=== PATIENT | female | born 1975 | race Hispanic/Latino ===

== ENCOUNTER → 2018-04-23 | Day surgery (SDC) | payer BC ==
[2018-04-19 15:52] LABS: BASOPHILS % 0.4 % (0.0-1.0); EOSINOPHILS # (AUTO) 0.2 (0.0-0.4); HEMATOCRIT 36.8 % (34.2-44.1); HEMOGLOBIN 12.5 g/dL (12.0-16.0); LYMPHOCYTES # (AUTO) 2.3 (1.0-3.2); LYMPHOCYTES % 28.1 % (18.0-39.1); MEAN CORPUSCULAR HEMOGLOBIN 30.1 pg (28-32); MEAN CORPUSCULAR VOLUME 88.7 fL (81-99); MONOCYTES # (AUTO) 0.7 (0.2-0.8); NEUTROPHILS # (AUTO) 5.1 (2.1-6.9); NEUTROPHILS % 61.3 % (38.7-80.0); PLATELET COUNT 252 x10e3/uL (140-360); RED BLOOD COUNT 4.15 x10e6/uL (3.6-5.1); RED CELL DISTRIBUTION WIDTH 12.9 % (11.7-14.4)
--- NOTE | 2018-04-19 16:15 | Diagnostic Imaging Report ---
PROCEDURE: Frontal and lateral views of the chest. COMPARISON: Patients [facility], , CHEST 2 VIEWS, 10/23/2015, 16:25. INDICATIONS: PRE-OPERATIVE CHEST X-RAY FOR SURGERY FINDINGS: Lines/tubes: None. Lungs: The lungs are well inflated and clear. There is no evidence of pneumonia or pulmonary edema. Pleura: There is no pleural effusion or pneumothorax. Heart and mediastinum: The heart and the mediastinum are normal. Bones: No acute bony abnormality. IMPRESSION: 1. No acute cardiopulmonary abnormality. Chris Vasquez M.D. Dictated by: Chris Vasquez M.D. on 04/19/2018 at 16:17 Electronically approved by: Chris Vasquez M.D. on 04/19/2018 at 16:17
[~2018-04-23] MED LIST: AMLODIPINE BESY10 MG PO; ASPIR 8181 MG PO; BUPIVACAINE HCL 0.5% 10ML MPF VIAL INJ ONE; BYSTOLIC10 MG PO; CEFAZOLIN SOD 1 GM VIAL ONE; DEXAMETHASONE SOD PHOS INJ 4 MG/ML VIAL ONE; FENTANYL CITRATE/PF 100MCG/2 ML INJ ONE; IBUPROFEN400 MG PO; KETOROLAC TROMETHAMINE 30 MG/ML VIAL ONE; LIDOCAINE HCL 2% LOCAL INJ 5 ML SDV VIAL INJ ONE; LISINOPRIL-HCT1 EAC1 PO; LOSARTAN POTAS100 MG PO; METOPROLOL SUCC50 MG PO; MIDAZOLAM HCL 2 MG/2 ML VIAL ONE; ONDANSETRON HCL INJ 2 MG/ML VIAL ONE; PROPOFOL IV EMULSION 10 MG/ML 20 ML VIAL ONE; SEVOFLURANE INHAL SOLN 250 ML PEN BTL ONE
--- OUTSIDE RECORDS SUMMARY | 2018-04-23 06:26 | XMS REPORT ---
Author [facility] Address Unknown Phone Unavailable Care Team Providers Care Manager Air Name Role Phone ANJU NAIR Unavailable Unavailable Problems This patient has no known problems. Allergies, Adverse Reactions, Alerts This patient has no known allergies or adverse reactions. Medications This patient has no known medications. Results Test Description Test Time Test Comments Text Results Atomic Results Result Comments CHEST 2 VIEWS 2018-04-19 16:17:00 [place] [address] Patient Name: SUZY CONTRERAS MR #: [id number] : 1975 Age/Sex: 42/F Req #: [id number] Adm Physician: Ordered by: ANJU NAIR DPM Report #: [id number] Location: OR Room/Bed: Procedure: [id number] DX/CHEST 2 VIEWS Exam Date: 04/19/18 Exam Time: 1555 REPORT STATUS: Signed PROCEDURE: Frontal and lateral views of the chest. COMPARISON: [facility], , CHEST 2 VIEWS, 10/23/2015, 16:25. INDICATIONS: PRE- OPERATIVE CHEST X-RAY FOR SURGERY FINDINGS: Lines/tubes: None. Lungs: The lungs are well inflated and clear. There is no evidence of pneumonia or pulmonary edema. Pleura: There is no pleural effusion or pneumothorax. Heart and mediastinum: The heart and the mediastinum are normal. Bones: No acute bony abnormality. IMPRESSION: 1. No acute cardiopulmonary abnormality. Mitch Thorpe M.D. Dictated by: Mitch Thorpe M.D. on 04/19/2018 at 16:17 Electronically approved by: Mitch Thorpe M.D. on 04/19/2018 at 16:17 Dictated By: MITCH THORPE MD [id number] Transcribed By: SANJIV on 04/19/18 1617 COPY TO: ANJU NAIR DPM
--- NOTE | 2018-04-23 09:42 | Operative Report ---
DATE OF PROCEDURE: April 23, 2018 PREOPERATIVE DIAGNOSES: 1. Right heel spur. 2. Right plantar fasciitis. POSTOPERATIVE DIAGNOSES: 1. Right heel spur. 2. Right plantar fasciitis. PLANNED PROCEDURE: Right plantar fasciotomy with excision of heel spur. ANESTHESIA: General with a postoperative block consisting of 10 mL of 0.5% Marcaine plain. HEMOSTASIS: Pneumatic ankle tourniquet set at 250 mmHg for a total time of approximately 15 minutes. MATERIALS: One TLS drain, 3-0 Vicryl, 4-0 Prolene. ESTIMATED BLOOD LOSS: Less than 10 mL. PATHOLOGY: None. PROCEDURE NOTE: The patient was seen in the preoperative waiting room where the correct procedure and site were identified. The patient was brought to the operating room and placed on the operating table in the supine position. General anesthesia was initiated at this time. A well-padded pneumatic tourniquet was placed about the patient's right ankle. The right foot, ankle, and leg were then scrubbed, prepped and draped in the usual aseptic manner. The right foot, ankle, and leg were then exsanguinated with an Esmarch bandage, and the pneumatic ankle tourniquet was inflated to 250 mmHg for a total time of approximately 20 minutes. Attention was directed to the medial aspect of the patient's right heel where a 4-cm linear incision was made on the medial and plantar aspect of the patient's right heel. The incision was carried through the subcutaneous tissues, them from deeper underlying structures. All vital neurovascular structures were identified, retracted dorsally and plantarly, and all bleeders were cauterized or ligated as deemed necessary. At this time, utilizing a curved Metzenbaum scissors, the dorsal and plantar aspect of the plantar fascia attachment was identified. An approximately one-third to one-half of the plantar fascia was cut to allow for expansion. The dissection was then carried down to the level of the heel spur where it was easily identified. Utilizing an osteotome and mallet, a rongeur and a rasp, the heel spur was excised, passed off to the back table and the bone was smoothed to anatomic alignment. This was confirmed via intraoperative fluoroscopy. The wound was then flushed with copious amounts of sterile saline. Deep tissue was reapproximated with 3-0 Vicryl, subcutaneous tissue with 3-0 Vicryl, and the skin was closed using a running interlocking stitch with 4-0 Prolene. Prior to wound closure, a TLS drain was placed per under trimmer protocol. The wound was dressed with Adaptic, 4 x 4's, Kerlix, Galo wrap, and a postop shoe. Patient tolerated the procedure and anesthesia well. Patient was transferred to the postoperative recovery unit with vital signs stable and vascular status intact. The patient was monitored there for a short period of time before being sent home with the following written and oral instructions: 1. Keep the dressing clean, dry, and intact. 2. The patient is to remain nonweightbearing to the right lower extremity, to avoid any ambulation until being seen in the office. 3. The patient was given the office number and instructed to contact us if any problems should arise. Job#: [id number]
== END | disposition home or self-care (01) ==
LOC: OR 06:23
PROVIDERS: ATTEND Podiatrist Foot & Ankle Surgery
DX: M77.31 Calcaneal spur, right foot (principal); M72.2 Plantar fascial fibromatosis; G47.33 Obstructive sleep apnea (adult) (pediatric); I10 Essential (primary) hypertension; Z01.810 Encounter for preprocedural cardiovascular examination; Z01.812 Encounter for preprocedural laboratory examination; Z01.818 Encounter for other preprocedural examination; Z79.82 Long term (current) use of aspirin
CPT/HCPCS: 28119; 36415; 71046; 81025; 85025; 93005; J0690; J1100; J1885; J2001; J2250; J2405

== ENCOUNTER → 2018-07-04 | Outpatient (CLI) | payer BC ==
[~2018-07-04] MED LIST changes: -BUPIVACAINE HCL 0.5% 10ML MPF VIAL INJ ONE; -CEFAZOLIN SOD 1 GM VIAL ONE; -DEXAMETHASONE SOD PHOS INJ 4 MG/ML VIAL ONE; -FENTANYL CITRATE/PF 100MCG/2 ML INJ ONE; -KETOROLAC TROMETHAMINE 30 MG/ML VIAL ONE; -LIDOCAINE HCL 2% LOCAL INJ 5 ML SDV VIAL INJ ONE; -MIDAZOLAM HCL 2 MG/2 ML VIAL ONE; -ONDANSETRON HCL INJ 2 MG/ML VIAL ONE; -PROPOFOL IV EMULSION 10 MG/ML 20 ML VIAL ONE; -SEVOFLURANE INHAL SOLN 250 ML PEN BTL ONE
== END ==
LOC: MAMMO 11:25
PROVIDERS: ATTEND Obstetrics & Gynecology
DX: Z12.31 Encounter for screening mammogram for malignant neoplasm of breast (principal)
CPT/HCPCS: 77067

== ENCOUNTER 2018-08-20 18:36 | Emergency (ER) | payer BC ==
[~2018-08-20] VITALS: Ht 160 cm; Wt 117.9 kg
--- OUTSIDE RECORDS SUMMARY | 2018-08-28 12:09 | XMS REPORT | Clinical Summary ---
Author Author [facility] Address Unknown Phone Unavailable Care Team Providers Care Vice President Of Finance Name Role Phone Asked, No Pcp PCP Unavailable Allergies No Known Allergies Current Medications Prescription Sig. Disp. Refills Start End Date Status Date naproxen (NAPROSYN) 500 0 04/20/20 Active MG tablet 18 metoprolol succinate XL 0 04/17/20 Active (TOPROL-XL) 50 mg 24 hr 18 tablet losartan (COZAAR) 100 MG 0 02/20/20 Active tablet 18 HYDROcodone-acetaminophen 0 04/20/20 Active (NORCO) 7.5-325 mg per 18 tablet amLODIPine (NORVASC) 10 0 03/26/20 Active mg tablet 18 Active Problems No known active problems Encounters Date Type Specialty Care Team Description 05/10/2018 Office Visit Orthopedic Surgery Dimitri Jackson, Bilateral carpal tunnel MD syndrome (Primary Dx); Nerve entrapment 05/09/2018 Orders Only Orthopedic Surgery Gwendolyn Jhaveri MA Pain in both hands (Primary Dx) after 08/19/2017 Family History Medical History Relation Name Comments Hypertension Father Cancer Mother Diabetes Mother Relation Name Status Comments Father Mother Social History Tobacco Use Types Packs/Day Years Used Date Never Smoker Smokeless Tobacco: Never Used Alcohol Use Drinks/Week oz/Week Comments No Sex Assigned at Date Recorded Not on file Last Filed Vital Signs Vital Sign Reading Time Taken Blood Pressure 121/83 05/10/2018 1:58 PM CDT Pulse 80 05/10/2018 1:58 PM CDT Temperature - - Respiratory Rate - - Oxygen Saturation - - Inhaled Oxygen - - Concentration Weight 118 kg (260 lb) 05/10/2018 1:58 PM CDT Height 160 cm (5' 3") 05/10/2018 1:58 PM CDT Body Mass Index 46.06 05/10/2018 1:58 PM CDT Plan of Treatment Health Maintenance Due Date Last Done Comments CERVICAL CANCER SCREENING 1995 INFLUENZA VACCINE 06/13/2018 Procedures Procedure Name Priority Date/Time Associated Diagnosis Comments XR HANDS 3 VW BILATERAL Routine 05/10/2018 Pain in both hands Results for this 1:55 PM CDT procedure are in the results section. after 08/19/2017 Results * XR Hands 3 Vw Bilateral (05/10/2018 1:55 PM) Narrative Performed At [facility] Xrays: The x-rays were ordered and personally reviewed by me. 3 views of the bilateral hands Reason for exam: Bilateral hand pain Impression: Bilateral hands with no fractures or dislocations and no significant arthritis appreciated Performing Organization Address City/State/Zipcode Phone Number [facility] [address] [place] [address] after 08/19/2017 Insurance Payer Benefit Subscriber ID Type Phone Address Plan / Group BCBS BCBS xxxxxxxxxxxx PPO CHOICE PPO/ELIZABETH [employer] PPO
== END 2018-08-20 19:19 | disposition left against medical advice (07) ==
LOC: ER 18:36
DX: M25.562 Pain in left knee (principal)

== ENCOUNTER 2018-09-07 06:55 | Outpatient (RCR) | payer BC | END 2018-09-12 | LOC: PT 06:55 | PROVIDERS: ATTEND Specialist | DX: M17.0 Bilateral primary osteoarthritis of knee (principal); M25.562 Pain in left knee; M25.561 Pain in right knee; M25.662 Stiffness of left knee, not elsewhere classified; M25.661 Stiffness of right knee, not elsewhere classified; M62.81 Muscle weakness (generalized); R26.81 Unsteadiness on feet; R26.89 Other abnormalities of gait and mobility ==

== ENCOUNTER 2018-09-24 16:00 | Outpatient (RCR) | payer BC | END 2018-10-12 | LOC: PT 16:00 | PROVIDERS: ATTEND Specialist | DX: M17.0 Bilateral primary osteoarthritis of knee (principal); M25.562 Pain in left knee; M25.561 Pain in right knee; M25.662 Stiffness of left knee, not elsewhere classified; M25.661 Stiffness of right knee, not elsewhere classified; R26.81 Unsteadiness on feet; M62.81 Muscle weakness (generalized); R26.89 Other abnormalities of gait and mobility ==

== ENCOUNTER → 2019-02-14 | Outpatient (CLI) | payer OTHER ==
--- NOTE | 2019-02-15 08:53 | Diagnostic Imaging Report ---
#[id number] - USBRELIMLT ULTRASOUND OF THE LEFT BREAST : 02/14/2019 Comparison is made to exams dated: 07/24/2018 ultrasound and 07/24/2018 mammogram - [facility]. Focused color flow and real-time ultrasound were performed on the left breast at the area of interest with scanning from 9-12 o'clock. -At 9 o'clock 2 cm from the nipple is a hypoechoic nodule measuring 1.1 x 0.6 x 0.7 cm (previously measured 1.2 x 0.7 x 0.8 cm). This does not appear different in configuration. -At 9 o'clock 2 cm from the nipple is a simple cyst measuring 1.0 x 0.6 x 0.9 cm. This cyst is in close proximity to the above described nodule. -No cyst or mass is noted at the 11 o'clock position as a cyst was previously described. IMPRESSION: PROBABLY BENIGN - FOLLOW-UP RECOMMENDED A follow-up mammogram and an ultrasound in 6 months is recommended to demonstrate stability. The patient was notified of the need for followup. She was also instructed of the need for biopsy if the nodule shows growth or change in configuration. She is OK with the plan of followup. Andres Edwards Jr., D.O. cw/:02/14/2019 17:49:04 Transmission Repairer: Cierra Godwin RDMS, [facility] letter sent: Followup Recommended Ultrasound BI-RADS: 3 Probably benign
== END ==
LOC: US 14:33
PROVIDERS: ATTEND Obstetrics & Gynecology
DX: N64.59 Other signs and symptoms in breast (principal)

== ENCOUNTER → 2019-08-02 | Outpatient (CLI) | payer OTHER | LOC: MAMMO 12:19 | PROVIDERS: ATTEND Obstetrics & Gynecology | DX: Z12.31 Encounter for screening mammogram for malignant neoplasm of breast (principal) | CPT/HCPCS: 77067 ==

== ENCOUNTER → 2020-08-24 | Outpatient (CLI) | payer OTHER | LOC: MAMMO 13:47 | PROVIDERS: ATTEND Obstetrics & Gynecology | DX: Z12.31 Encounter for screening mammogram for malignant neoplasm of breast (principal) | CPT/HCPCS: 77067 ==